=== PATIENT | female | born 1950 | race Caucasian/White ===

== ENCOUNTER → 2020-05-25 | Emergency (ER) | payer OTHER ==
[~2020-05-25] VITALS: Ht 152.4 cm; Wt 62.6 kg
[~2020-05-25] MED LIST: ACETAMINOPHEN650 M2 PO; OSPHENA60 MG; SKELAGESIC TOP; VALTREX1000 MG
== END | disposition home or self-care (01) ==
LOC: ER 10:08
DX: S63.592A Other specified sprain of left wrist, initial encounter (principal); W18.39XA Other fall on same level, initial encounter; Y93.89 Activity, other specified; Y92.89 Other specified places as the place of occurrence of the external cause; Y99.8 Other external cause status